=== PATIENT | male | born 1995 | race African-American/Black ===

== ENCOUNTER 2018-10-09 20:28 | Emergency (ER) | payer BC ==
[~2018-10-09] VITALS: Ht 188 cm; Wt 154.5 kg
[~2018-10-09 20:28] MED LIST: ATIVAN 0.50.5 MG/TAB PO; DESYREL 50MG50 MG PO
[2018-10-09 20:34] VITALS: TEMP 98
[2018-10-09 20:41] VITALS: BP 132/88; PULSE 94
== END 2018-10-09 22:42 | disposition home or self-care (01) ==
LOC: COL.ER 20:28
DX: R23.3 Spontaneous ecchymoses (principal)

== ENCOUNTER → 2020-04-21 | Outpatient (CLI) | payer BC | LOC: COL.RAD 12:36 | DX: N44.1 Cyst of tunica albuginea testis (principal); N43.40 Spermatocele of epididymis, unspecified ==